=== PATIENT | male | born 1945 | race Caucasian/White ===

== ENCOUNTER 2016-10-01 05:35 | Inpatient (IN) | payer OTHER ==
[~2016-10-01] VITALS: Ht 180.3 cm; Wt 91.6 kg
[~2016-10-01 05:35] MED LIST: OMEPRAZOLE20 M3 PO; SYNTHROID75 MCG PO
[2016-10-01] MEDS ORDERED: VITAMIN B-121000 MC3 PO (15:07)
[2016-10-01] MEDS ORDERED: VITAMIN D31000 UNI1 PO (15:08)
[2016-10-01 19:48] VITALS: BP 106/52
[2016-10-01 21:59] VITALS: BP 132/80
[2016-10-02 06:46] VITALS: BP 100/60
--- NOTE | 2016-10-02 07:14 | PN- Urology ---
Subjective Subjective: Comfortable. No distress Objective Vital Signs and I&Os Vital Signs Date Time Temp Pulse Resp B/P Pulse O2 O2 Flow FiO2 Ox Delivery Rate 10/02 645 98.2 72 20 100/60 93 Room Air 10/02 06 93 Room Air Room Air 10/010 98 Room Air Room Air 10/01 2158 97.6 74 18 132/80 98 Room Air 10/01 1948 97.5 59 18 106/52 98 Room Air Intake & Output 10/02 0800 10/02 0000 10/01 1600 10/01 0810/01 0000 09/30 1600 Intake Total 650 650 Output Total 46489 45898 Balance -9700 -25681 Intake, IV 400 150 Intake, Oral 250 500 Output, Urine 77422 65148 Patient 202 lb Weight Abd: soft and non tender Genitalia: 3 way [address], on traction. CBI running with clear drainage Extrems: no tenderness Today's labs pending Assessment/Plan Assessment/Plan Imp: Stable s/p TURP Plan: Montes taken off traction Try to wean off CBI today If CBI off and urine clear then voiding trial in AM Core Measures/Miscellaneous Venous Thromboembolism VTE Risk Factors: Age > 40 VTE Contraindications: No Contraindications VTE Diagnosis: No Beta Gertrudis Is Beta Gertrudis a Home Med? No Antibiotics Is Patient on Antibiotics? Yes
[2016-10-02 08:10] LABS: ABSOLUTE BASOPHIL COUNT 0 /CUMM (0.0-0.2); ABSOLUTE EOSINOPHIL COUNT 0.1 /CUMM (0.0-0.7); ABSOLUTE GRANULOCYTE CT 5.2 /CUMM (1.4-6.5); ABSOLUTE MONOCYTE COUNT 0.6 /CUMM (0.10-0.60); BASOPHIL % 0.5 % (0.0-2.0); GRANULOCYTE % 74.8 % (42.2-75.2); HEMATOCRIT 40.2 % (42-52); MEAN CORPUSCULAR HGB 31.3 PG (27.0-31.0); MEAN CORPUSCULAR HGB CONC 33.9 G/DL (33.0-37.0); MEAN CORPUSCULAR VOLUME 92.3 FL (80.0-94.0); MEAN PLATELET VOLUME 8.4 FL (7.4-10.4); PLATELET COUNT 166 /CUMM (130-400); RBC DISTRIBUTION WIDTH 13.1 % (11.5-14.5); RED BLOOD CELL CT 4.36 /CUMM (4.70-6.10); WHITE BLOOD CELL COUNT 6.9 /CUMM (4.8-10.8)
[2016-10-02 14:45] VITALS: BP 122/71
[2016-10-02 21:44] VITALS: BP 100/50
--- NOTE | 2016-10-03 07:31 | PN- Urology ---
Subjective Subjective: Comfortable Objective Vital Signs and I&Os Vital Signs Date Time Temp Pulse Resp B/P Pulse O2 O2 Flow FiO2 Ox Delivery Rate 10/03 0600 94 Room Air 10/02 2200 Room Air 10/02 2144 98.6 85 16 100/50 94 Room Air 10/02 1445 99.1 88 20 122/71 99 Room Air 10/02 1400 94 Room Air Room Air 10/02 1109 Room Air Room Air Intake & Output 10/03 0800 10/03 0000 10/02 1600 10/02 0800 10/02 0000 10/01 1600 Intake Total 2742 564 8677 650 650 Output Total 2049 6000 1350 48000 59581 Balance -1050 -5250 350 -9700 -71299 Intake, IV 100 400 150 Intake, Oral 1877 058 4213 250 500 Output, Urine 2049 6000 1350 31158 22219 Patient 202 lb Weight Back: No CVA tenderness Abd: soft and non tender Genitalia: 3 way mont[address]. CBI just turned off with light pink urine Extrems: no calf tenderness Assessment/Plan Assessment/Plan Imp: Stable s/p TURP Plan: Montes removed If patient voids adequately and urine fairly clear will consider discharge this PM Core Measures/Miscellaneous Venous Thromboembolism VTE Risk Factors: Age > 40 VTE Contraindications: No Contraindications VTE Diagnosis: No Beta Gertrudis Is Beta Gertrudis a Home Med? No Antibiotics Is Patient on Antibiotics? Yes
[2016-10-03 07:33] VITALS: BP 110/68
--- NOTE | 2016-10-03 12:03 | Operative Report ---
Operative/Inv Procedure Report Surgery Date: 10/01/16 Name of Procedure: Cystoscopy and TURP Pre-Operative Diagnosis: Urinary retention due to prostatic hypertrophy Post-Operative Diagnosis: Same Estimated Blood Loss: 50ml to 100ml Surgeon/Small Package And Bundle Sorter Clerk: Ye BURNS, Pattie JOHNSON MD,PATTIE Green Anesthesia: laryngeal mask airway Drains: 22 Jordanian three-way hematuria catheter Specimens: Urine culture and prostate chips Complications: None Condition: Stable Operative Indication: Urinary retention Operative/Procedure Note Note: The patient was taken to the cystoscopy room and identified. He was placed in supine position on the cystoscopy table. A timeout was executed appropriately with the patient awake. Gen. anesthesia was induced via LMA. He was then placed in the dorsolithotomy position and prepped and draped in usual fashion for cystoscopy. A surgical pause was executed appropriately. A 22 Jordanian cystoscope sheath was placed into the bladder under direct vision using the 30 lens. Anterior urethra was normal. Prostatic urethra showed trilobar prostatic hypertrophy with definite bladder outlet obstruction. There was an especially large middle lobe of the prostate. The bladder was significant trabeculated. The ureteral orifices were normal in location and appearance. There was evidence of catheter cystitis. There was no evidence of bladder tumor or stone. At this point the bladder was left full and the cystoscope removed. The 26 Jordanian resectoscope sheath was then placed using the obturator. First the middle lobe the prostate was resected between 5 and 7:00 positions. Hemostasis is obtained electrocautery. Next the left lateral lobe of the prostate was resected between 1 and 5:00 positions using the bladder neck to the proximal landmark and the verumontanum as a distal landmark. Hemostasis was obtained electrocautery. Next the right lateral lobe of the prostate was resected between 11:00 and 7:00 positions using same landmarks. Hemostasis is obtained electrocautery. Floor the prostatic urethra was then resected between 5 and 7: 00 positions using same landmarks. Stasis was obtained electrocautery. Finally the roof of the prostatic fossa was resected between 11:00 and 1:00 positions. All prostate chips were irrigated from the bladder. Hemostasis was obtained electrocautery. The ureteral orifices were noted to be preserved. At this point there was minimal bleeding noted. The bladder was left full and the resectoscope removed. A 22 Jordanian three-way hematuria catheter was placed. Continuous bladder irrigation was begun with light pink drainage with the catheter on traction. The patient tolerated the procedure well and as completion was taken to recovery room in stable condition. Findings: Trilobar prostatic hypertrophy with bladder outlet obstruction. The middle lobe the prostate was especially enlarged Discharge Disposition: PACU
--- NOTE | 2016-10-03 12:07 | Discharge Summary ---
Visit Information Visit Dates Admission Date: 10/01/2016 10/01/16 Discharge Date: 10/03/2018 Hospital Course Course Attending Physician: Ye BURNS, Pattie JOHNSON MD,PATTIE Green Primary Care Physician: DORIS STRICKLAND MD Hospital Course: The patient underwent a TURP on 10/01/2016. A Herndon catheter was left in place for continuous bladder irrigation. On the morning of 10/03/2016 the Herndon catheter was removed. A short 40 spontaneously and was discharged home Complications: None Allergies: Coded Allergies: No Known Allergies (09/25/16) Significant Procedures: TURP Disposition Summary Disposition Principal Diagnosis: Urinary retention due to prostatic hypertrophy Additional Diagnosis: Hypothyroidism Discharge Disposition: home or self care Discharge Instructions General Discharge Information Code Status: Full Code Patient's Diet: Regular Patient's Activity: Light only Follow-Up Instructions/Appts: Office visit in 3 weeks Medications at Discharge Discharge Medications: Continue taking these medications: Levothyroxine Sodium (Synthroid) 75 MCG TABLET 1 Tablet ORAL DAILY Comments: Last Taken: 10/03/16 Time: 6:00 AM Omeprazole (Omeprazole) 20 MG TABLET.DR 1 Tablet ORAL DAILY Comments: Last Taken: 10/03/16 Time: 6:00 AM Cyanocobalamin (Vitamin B-12) 1,000 MCG TABLET 1 Tablet ORAL DAILY Comments: NOT GIVEN IN HOSPITAL Cholecalciferol (Vitamin D3) (Vitamin D3) 1,000 UNIT CAPSULE 5 Capsule ORAL DAILY Comments: NOT GIVEN IN HOSPITAL Copies To: PATTIE JOHNSON MD
== END 2016-10-03 13:17 | DRG 713 ==
LOC: ENRESERVTM → ENRESERVDT → SDA 05:35 → 2NB 05:35 → SDA 07:00 → 2NB 19:21
PROVIDERS: ADMIT Urology
PROC: 0VB08ZZ Excision of Prostate, Via Natural or Artificial Opening Endoscopic (ICD-10-PCS; principal; 2016-10-01)
DX: N40.1 Benign prostatic hyperplasia with lower urinary tract symptoms (principal); N13.8 Other obstructive and reflux uropathy; R33.8 Other retention of urine; E03.9 Hypothyroidism, unspecified; K21.9 Gastro-esophageal reflux disease without esophagitis
CPT/HCPCS: 2NBSP; 82436; 87086; 88305; J0131; J0290; J1644; J2405; J7042